=== PATIENT | male | born 1995 | race Hispanic/Latino ===

== ENCOUNTER 2017-05-05 23:38 | Emergency (ER) | payer OTHER ==
[2017-05-06] MEDS ORDERED: diphenhydrAMINE 25 MG CAP ONE (00:43)
== END 2017-05-06 01:22 | disposition home or self-care (01) ==
LOC: ERS 23:38
DX: R20.2 Paresthesia of skin (principal); F17.210 Nicotine dependence, cigarettes, uncomplicated
CPT/HCPCS: 99283